=== PATIENT | female | born 1970 ===

== ENCOUNTER → 2019-03-05 | Outpatient (CLI) | payer BC ==
--- NOTE | 2019-03-05 17:00 | RADIOLOGY IMAGING REPORT ---
FACILITY: [facility] [place] PATIENT NAME: Sheila Nunez : 1970 MR: [id number] V: [id number] EXAM DATE: ORDERING PHYSICIAN: MIHAI CASH TECHNOLOGIST: [facility] Patient: Sheila Nunez : 1970 Visit/Account:[id number] Date of Sevice: 03/05/2019 Exam type: BREAST CYST ASPIRATION RIGHT History: Right breast cyst aspiration Comparison: Outside bilateral breast ultrasound. Findings: Informed consent was obtained. The right side of the patient's breast was prepped and draped usual s terile fashion. Local anesthesia was accomplished 1% lidocaine. Under direct and continuous sonogra psychiatric guidance an 18-gauge spinal needle was advanced percutaneously into the large breast cysts in th e 10:00 position. Approximately 10 mL of milky beige fluid was removed from the cyst and sent to lab oratory for evaluation. The procedure was accomplished without apparent complication. The sonograph ic images were saved to PACS IMPRESSION: 1. Successful sonographically guided right breast cyst aspiration Report Dictated By: Amanda Silva MD at 03/05/2019 4:52 PM Report E-Signed By: Amanda Silva MD at 03/05/2019 4:53 PM WSN:LM
--- NOTE | 2019-03-05 17:02 | RADIOLOGY IMAGING REPORT ---
FACILITY: [facility] PATIENT NAME: Sheila Nunez : 1970 MR: [id number] V: [id number] EXAM DATE: ORDERING PHYSICIAN: MIHAI CASH TECHNOLOGIST: Location: [facility] [place] Patient: Sheila Nunez : 1970 Visit/Account:[id number] Date of Sevice: 03/05/2019 Exam type: BREAST CYST ASPIRATION LEFT History: Large left breast cyst 3:00 position Comparison: Outside bilateral breast ultrasound. Findings: Informed consent was obtained. The left breast was prepped and draped usual sterile fashion. Local anesthesia was accomplished with 1% lidocaine. Under direct and continuous sonographic guidance an 1 8-gauge spinal needle was advanced percutaneously into the large cyst in the 3:00 position of the lef t breast. Approximate 14 mL of milky beige fluid was aspirated from the cyst and sent to laboratory for evaluation. The procedure was accomplished without apparent complication. Sonographic images we re saved to PACS IMPRESSION: 1. Successful sonographically guided left breast cyst aspiration Report Dictated By: Amanda Silva MD at 03/05/2019 4:53 PM Report E-Signed By: Amanda Silva MD at 03/05/2019 4:55 PM WSN:LM
== END ==
LOC: US 13:25
PROVIDERS: ATTEND Advanced Practice Midwife
DX: N63.23 Unspecified lump in the left breast, lower outer quadrant (principal); N63.21 Unspecified lump in the left breast, upper outer quadrant; R92.8 Other abnormal and inconclusive findings on diagnostic imaging of breast
CPT/HCPCS: 76942